=== PATIENT | female | born 1955 | race African-American/Black ===

== ENCOUNTER 2016-11-01 23:15 | Emergency (ER) | payer SELFPAY ==
[2016-11-01 23:34] VITALS: BMI 28.3
[2016-11-01] MEDS ORDERED: ONDANSETRON HCL 4 MG/2 ML VIAL IV ONE (23:41)
[2016-11-01] MEDS ORDERED: HYDROmorphone 1 MG INJECTION IV ONE (23:41)
[2016-11-01] MEDS ORDERED: NS 1,000 ML IV ONE (23:41)
[2016-11-01] MEDS ORDERED: Pharmacy Review for Metformin - IV Contrast Given SCH (23:45)
--- NOTE | 2016-11-01 23:46 | EDPRACDOC ---
- General Information Chief Complaint: Abdominal Pain Stated Complaint: CHEST/ABD/BACK PAIN Time Seen by Provider: 11/01/16 23:26 Information Source: Patient Mode Of Arrival: Ambulance Home Medications: Home Medications Lisinopril 40 mg PO DAILY 11/19/12 Losartan Potassium [Cozaar] 50 mg PO BID 11/19/12 Vits W-Ca,Fe,FA(<1Mg) [] 1 each PO DAILY 11/19/12 Rosuvastatin Calcium [Crestor] 20 mg PO DAILY 11/19/12 Humulin Unknown 25 units SQ HS 07/02/15 Humulin Unknown 30 unit SQ QAM 07/02/15 Unknown Thyroid Med 0 mg PO DAILY 07/02/15 Cephalexin Monohydrate [Keflex] 500 mg PO Q8H #30 cap 01/25/16 Cyclobenzaprine HCl [Flexeril] 10 mg PO BID #14 tablet 01/25/16 Hydrocodone Bit/Acetaminophen [Hydrocodon-Acetaminophen 5-325] 1 tab PO Q6H PRN #14 tab 01/25/16 Unknown Iron Supplement 1 tab PO DAILY 01/25/16 Ondansetron [Zofran Odt] 4 mg PO Q6H PRN #10 tab.rapdis 11/02/16 Oxycodone HCl [Roxicodone] 5 mg PO Q4 PRN #10 tablet 11/02/16 Promethazine [Phenergan] 25 mg PO Q8H PRN #15 tab 11/02/16 Promethazine [Phenergan] 25 mg RI Q6H PRN #12 supp 11/02/16 Allergies/Adverse Reactions: Allergies Allergy/AdvReac Type Severity Reaction Status Date / Time codeine [Codeine] Allergy Nausea/Vomi Verified 11/01/16 23:33 ting - History of Present Illness Onset: 2 HOURS HPI: PT ARRIVES VIA EMS. SE[facility] TODAY. DIAGNOSED WITH SINUS INFECTION. STARTED ON ZOFRAN AND AUGMENTING AND CETIRAZINE. DEVELOPED ABD PAIN WITH N/V SEVERE PAIN ABOUT 2200. Last Menstrual Period: post menapausal : No - Treatment Prior to ED Arrival Reported Medications/Treatment [employer] [facility] Treatment BLS IV No ED Past Medical History - History Reviewed Yes Nurses notes reviewed and agree except as marked - Patient Medical History Cardiac History: Reports: Hypertension, Hypercholesterolemia Psychological History: Denies: Depression Systemic History: Reports: Diabetes. Denies: Cancer Surgical History: Denies: Hysterectomy - Social Medical History Smoking Status: Never smoker EDM Review of Systems - Review of Systems ROS Negative Except as Marked: Yes All systems reviewed and were negative except as marked Mouth: No Symptoms Reported Respiratory: No Symptoms Reported Cardiovascular: No Symptoms Reported Gastrointestinal: Nausea, Pain, Vomiting Genitourinary: No Symptoms Reported Neurological: Headache (INTERMITTENT, STARTED IN ED.) - Physical Exam Constitutional: Alert (Awake), Writhing, Other (MOANING) Oriented to: Time, Person, Place Last recorded Vital Signs: Last Vital Signs Temp 98.2 F 11/01/16 23:27 Pulse 92 11/02/16 01:41 Resp 20 11/02/16 01:41 BP 158/79 11/02/16 01:41 Pulse Ox 96 11/02/16 01:41 Oxygen Pulse Oxygen Saturation 96 O2 Device Room Air Oxygen Flow Rate Fraction of Inspired Oxygen ( FIO2) - HEENT Head: Normal ( normocephalic) Eye Exam: Normal (PERRL, EOMI, Sclera white) Oropharynx: Normal (Pharynx:Moist without exudate,Gums-no swelling) Nose: No Symptoms Reported (septum midline) Neck: Normal (FROM, trachea at midline) - Respiratory/Cardiovascular Respiratory: Normal - CTA (BBS clear to auscultation without adventitious sounds ) Cardiovascular: Normal (RRR without murmur, gallop or rub) - GI Auscultation: Normal (NABS) Palpation: Normal (Soft,No rebound or guarding, non distended) Tenderness: Non tender Shaikh's Sign: Negative - Musculoskeletal Back: Normal (Non-Tender) Extremities: Normal (Normal tone, Pulses 2+ No cyanosis or edema, FROM) - Integumentary Skin: Normal, Warm, Dry Lymphatics: Normal (no adenopathy) - Neurologic Memory Impaired: Normal Motor Function: Normal (Normal tone, Pulses 2+ No cyanosis or edema, FROM) Cranial Nerve: Normal (CN II-X11 intact sensation, strength 5/5) Cerebellar: Normal Mood Description: Normal Perception: Normal - Re-evaluation Re-evaluation 1 Re-evaluation Time: 04:00 LESION ON LIVER D/W . PT FEELING BETTER, SOME NAUSEA. RESTING COMFORTABLY. ABD SOFT. - Results 11/02/16 00:33 11/02/16 00:33 WBC 10.5 xk/uL (3.8-10.8) 11/02/16 00:33 RBC 4.11 xM/uL (4.20-5.40) L 11/02/16 00:33 Hgb 11.6 g/dL (12.0-16.0) L 11/02/16 00:33 Hct 35.3 % (36-47) L 11/02/16 00:33 MCV 86 fL (81-99) 11/02/16 00:33 MCH 28.1 pg (27-32) 11/02/16 00:33 MCHC 32.7 g/dl (33-36) L 11/02/16 00:33 RDW 14.6 % (11.5-14.5) H 11/02/16 00:33 Plt Count 194 xk/uL (130-400) 11/02/16 00:33 MPV 7.8 fL (7.4-10.4) 11/02/16 00:33 Neut % (Auto) 79.7 % (45-76) H 11/02/16 00:33 Lymph % (Auto) 14.0 % (17-44) L 11/02/16 00:33 [place] % (Auto) 5.3 % (3-10) 11/02/16 00:33 Eos % (Auto) 0.5 % (0-5) 11/02/16 00:33 Baso % (Auto) 0.5 % (0-2) 11/02/16 00:33 Absolute Neuts (auto) 8.30 xk/uL (1.7-8.2) H 11/02/16 00:33 Absolute Lymphs (auto) 1.47 xk/uL (0.65-4.75) 11/02/16 00:33 PT 10.5 SEC (9.2-11.2) 11/02/16 00:33 INR 1.0 11/02/16 00:33 APTT 20.1 SEC (22-35) L 11/02/16 00:33 Sodium 143 mEq/L (137-146) 11/02/16 00:33 Potassium 4.5 mEq/L (3.5-5.1) 11/02/16 00:33 Chloride 110 mEq/L (98-107) H 11/02/16 00:33 Carbon Dioxide 22 mMOL/L (22-33) 11/02/16 00:33 Anion Gap 16 mEq/L (8-16) 11/02/16 00:33 BUN 34 MG/DL (7-17) H 11/02/16 00:33 Creatinine 1.60 MG/DL (0.52-1.04) H 11/02/16 00:33 Estimated GFR (MDRD) 40 mL/min (>=60) L 11/02/16 00:33 Glucose 98 MG/DL (70-99) 11/02/16 00:33 Calculated Osmolality 283 MOs/Kg (270-290) 11/02/16 00:33 Lactic Acid 1.8 mEq/L (0.7-2.1) 11/02/16 00:33 Calcium 9.0 MG/DL (8.4-10.2) 11/02/16 00:33 Total Bilirubin 0.4 MG/DL (0.2-1.3) 11/02/16 00:33 AST 32 IU/L (14-36) 11/02/16 00:33 ALT 44 IU/L (9-52) 11/02/16 00:33 Alkaline Phosphatase 112 IU/L (38-126) 11/02/16 00:33 Troponin I < 0.01 ng/mL (<.04) 11/02/16 00:33 Total Protein 7.5 G/DL (6.3-8.2) 11/02/16 00:33 Albumin 4.1 G/DL (3.5-5.0) 11/02/16 00:33 Lipase 342 U/L (23-300) H 11/02/16 00:33 Urine Color Yellow 11/02/16 00:53 Urine Clarity Hazy 11/02/16 00:53 Urine pH 8.0 (5.0-8.0) 11/02/16 00:53 Ur Specific [place] 1.010 11/02/16 00:53 Urine Protein 2+ (NEG/TRACE) H 11/02/16 00:53 Urine Glucose (UA) Neg (NEGATIVE) 11/02/16 00:53 Urine Ketones Neg (NEGATIVE) 11/02/16 00:53 Urine Occult Blood Neg (NEG/TRACE) 11/02/16 00:53 Urine Nitrite Neg (NEGATIVE) 11/02/16 00:53 Urine Bilirubin Neg (NEGATIVE) 11/02/16 00:53 Urine Urobilinogen 0.2 MG/DL (0-1) 11/02/16 00:53 Ur Leukocyte Esterase Trace (NEGATIVE) 11/02/16 00:53 Urine RBC 0-2 (0-5) 11/02/16 00:53 Urine WBC 10-20 (0-5) H 11/02/16 00:53 Ur Epithelial Cells 4+ 11/02/16 00:53 Urine Bacteria 2+ (NEG/FEW) H 11/02/16 00:53 Hyaline Casts 5-10 (0-2) H 11/02/16 00:53 Lab Results 11/02/16 11/02/16 11/02/16 00:53 00:33 00:33 WBC RBC Hgb Hct MCV MCH MCHC RDW Plt Count MPV Neut % (Auto) Lymph % (Auto) [place] % (Auto) Eos % (Auto) Baso % (Auto) Absolute Neuts (auto) Absolute Lymphs (auto) PT 10.5 INR 1.0 APTT 20.1 L Sodium Potassium Chloride Carbon Dioxide Anion Gap BUN Creatinine Estimated GFR (MDRD) Glucose Calculated Osmolality Lactic Acid 1.8 Calcium Total Bilirubin AST ALT Alkaline Phosphatase Troponin I Total Protein Albumin Lipase Urine Color Yellow Urine Clarity Hazy Urine pH 8.0 Ur Specific [place] 1.010 Urine Protein 2+ H Urine Glucose (UA) Neg Urine Ketones Neg Urine Occult Blood Neg Urine Nitrite Neg Urine Bilirubin Neg Urine Urobilinogen 0.2 Ur Leukocyte Esterase Trace Urine RBC 0-2 Urine WBC 10-20 H Ur Epithelial Cells 4+ Urine Bacteria 2+ H Hyaline Casts 5-10 H 11/02/16 11/02/16 00:33 00:33 WBC 10.5 RBC 4.11 L Hgb 11.6 L Hct 35.3 L MCV 86 MCH 28.1 MCHC 32.7 L RDW 14.6 H Plt Count 194 MPV 7.8 Neut % (Auto) 79.7 H Lymph % (Auto) 14.0 L [place] % (Auto) 5.3 Eos % (Auto) 0.5 Baso % (Auto) 0.5 Absolute Neuts (auto) 8.30 H Absolute Lymphs (auto) 1.47 PT INR APTT Sodium 143 Potassium 4.5 Chloride 110 H Carbon Dioxide 22 Anion Gap 16 BUN 34 H Creatinine 1.60 H Estimated GFR (MDRD) 40 L Glucose 98 Calculated Osmolality 283 Lactic Acid Calcium 9.0 Total Bilirubin 0.4 AST 32 ALT 44 Alkaline Phosphatase 112 Troponin I < 0.01 Total Protein 7.5 Albumin 4.1 Lipase 342 H Urine Color Urine Clarity Urine pH Ur Specific [place] Urine Protein Urine Glucose (UA) Urine Ketones Urine Occult Blood Urine Nitrite Urine Bilirubin Urine Urobilinogen Ur Leukocyte Esterase Urine RBC Urine WBC Ur Epithelial Cells Urine Bacteria Hyaline Casts - EKG EKG #1 EKG Time: 00:07 -: Yes EKG interpreted by me Rate: bpm: 73 [place]: Normal Rhythm: NSR Block: None Hypertrophy: None ST: Normal Comments: NORMAL EKG Decision Time to Discharge: 04:44 - Departure Yes I personally saw and evaluated the patient. Disposition: Home Condition: Stable Final Diagnosis: Lesion of liver Abdominal pain Qualifiers: Abdominal location: generalized Qualified Code(s): R10.84 - Generalized abdominal pain Nausea & vomiting Qualifiers: Vomiting type: unspecified Vomiting Intractability: non-intractable Qualified Code(s): R11.2 - Nausea with vomiting, unspecified Instructions: Acute Abdominal Pain (ED), Acute Nausea and Vomiting (ED) Education/Counseling Given To: Patient, Family Member Education/Counseling Given Regarding: Diagnosis, Treatment Referrals: Keyana Potter MD [Primary Care Provider] - One Week Prescriptions: Ondansetron [Zofran Odt] 4 mg PO Q6H PRN #10 tab.rapdis PRN Reason: Nausea/Vomiting Oxycodone HCl [Roxicodone] 5 mg PO Q4 PRN #10 tablet PRN Reason: Pain Promethazine [Phenergan] 25 mg RI Q6H PRN #12 supp PRN Reason: Nausea/Vomiting Promethazine [Phenergan] 25 mg PO Q8H PRN #15 tab PRN Reason: Nausea/Vomiting Additional Instructions: STOP YOUR AUGMENTIN. Return to the Emergency Department for worse or different abdominal problems, especially in the next 12 - 24 hours. The test today did not determine the cause of your pain.. FOLLOW UP WITH YOUR PRIMARY DOCTOR ABOUT THE SMALL 9 MM LIVER LESION SEEN ON CT SCAN. YOU MAN NEED AN MRI.
[2016-11-02] MEDS ORDERED: PROMETHAZINE 25 MG/ML VIAL IV ONE (00:28)
[2016-11-02] MEDS ORDERED: HYDROmorphone 1 MG INJECTION IV ONE (00:28)
[2016-11-02 00:43] LABS: AUTOMATED BASOPHIL 0.5 % (0-2); AUTOMATED EOSINOPHIL 0.5 % (0-5); AUTOMATED MONOCYTE 5.3 % (3-10); AUTOMATED NEUTROPHIL 79.7 % (45-76); MPV 7.8 fL (7.4-10.4)
[2016-11-02 00:50] LABS: PARTIAL THROMB. TIME 20.1 SEC (22-35)
[2016-11-02 00:51] LABS: BLOOD UREA NITROGEN 34 MG/DL (7-17); CALCULATED OSMOLALITY 283 MOs/Kg (270-290); CHLORIDE 110 mEq/L (98-107); GLUCOSE 98 MG/DL (70-99); SODIUM LEVEL 143 mEq/L (137-146); TOTAL PROTEIN 7.5 G/DL (6.3-8.2)
[2016-11-02 00:59] LABS: LEUKOCYTES/URINE TRACE (NEGATIVE); NITRITE/URINE NEG (NEGATIVE); URINE OCCULT BLOOD NEG (NEG/TRACE)
[2016-11-02] MEDS ORDERED: NS 1,000 ML IV ONE (01:02)
[2016-11-02 01:06] LABS: RBC/URINE 0-2 (0-5)
--- NOTE | 2016-11-02 01:23 | DIRPT ---
CLINICAL DATA: 61-year-old female with abdominal pain nausea and vomiting EXAM: PORTABLE CHEST 1 VIEW COMPARISON: Radiograph dated 07/02/2015 FINDINGS: Single-view of the chest does not demonstrate a focal consolidation. There is no pleural effusion or pneumothorax. Stable cardiac silhouette. The osseous structures appear unremarkable. IMPRESSION: No active disease. Electronically Signed By: Deven Escalante M.D. On: 11/02/2016 01:20
[2016-11-02] MEDS ORDERED: DIPHENHYDRAMINE 50 MG/ML VIAL ONE (03:22)
--- NOTE | 2016-11-02 03:52 | DIRPT ---
CLINICAL DATA: Acute onset of mid abdominal pain, radiating to the chest and lower back. Nausea and vomiting. Initial encounter. EXAM: CTA ABDOMEN AND PELVIS WITH CONTRAST TECHNIQUE: Multidetector CT imaging of the abdomen and pelvis was performed using the standard protocol during bolus administration of intravenous contrast. Multiplanar reconstructed images and MIPs were obtained and reviewed to evaluate the vascular anatomy. CONTRAST: 80 mL of Isovue 370 IV contrast COMPARISON: CT of the abdomen and pelvis from 11/19/2012 FINDINGS: The abdominal aorta is unremarkable in appearance. There is no evidence of aortic dissection. There is no evidence of aneurysmal dilatation. The celiac trunk, superior mesenteric artery, bilateral renal arteries and inferior mesenteric artery remain patent. Minimal calcification is noted along the proximal renal arteries bilaterally. Minimal calcification is noted along the proximal left common iliac artery. The left external and internal iliac arteries are unremarkable in appearance. The inferior vena cava is unremarkable in appearance. Mild bibasilar atelectasis or scarring is noted. A calcified pleural plaque is noted at the right lung base. A 9 mm hypodensity is noted within the right hepatic lobe. The liver and spleen are otherwise unremarkable. The patient is status post cholecystectomy, with clips noted at the gallbladder fossa. The pancreas and adrenal glands are unremarkable. The kidneys are unremarkable in appearance. There is no evidence of hydronephrosis. No renal or ureteral stones are seen. No perinephric stranding is appreciated. No free fluid is identified. The small bowel is unremarkable in appearance. The stomach is within normal limits. No acute vascular abnormalities are seen. The appendix is normal in caliber, without evidence of appendicitis. The colon is unremarkable in appearance. The bladder is moderately distended and grossly remarkable. The uterus is grossly remarkable in appearance. The ovaries are relatively symmetric. No suspicious adnexal masses are seen. No inguinal lymphadenopathy is seen. No acute osseous abnormalities are identified. Review of the MIP images confirms the above findings. IMPRESSION: 1. No evidence of aortic dissection. No evidence of aneurysmal dilatation. 2. Minimal calcification along the proximal renal arteries bilaterally. Minimal calcification along the proximal left common iliac artery. No additional evidence for calcific atherosclerotic disease. 3. Mild bibasilar atelectasis or scarring noted. Calcified pleural plaque again noted at the right lung base, raising question for prior asbestos exposure. 4. 9 mm nonspecific hypodensity within the right hepatic lobe. Electronically Signed By: José Miguel Garza M.D. On: 11/02/2016 02:44
[2016-11-02 05:21] VITALS: BP 124/58; PULSE 76; TEMP 98.6
== END 2016-11-02 05:10 | disposition home or self-care (01) ==
LOC: ED 23:15
DX: K76.9 Liver disease, unspecified (principal); R10.84 Generalized abdominal pain; R11.2 Nausea with vomiting, unspecified; R07.9 Chest pain, unspecified
CPT/HCPCS: 36415; 71010; 72191; 74175; 80053; 81001; 83605; 83690; 84484; 85025; 85610; 85730; 93005; 96361; 96374; 96375; 99284; A9698; J1170; J1200; J2405; J2550